=== PATIENT | female | born 1970 | race Caucasian/White ===

== ENCOUNTER 2022-04-06 12:29 | Emergency (ER) | payer SELFPAY ==
[2022-04-06] VITALS (16 sets, daily range): BP systolic 119–150; BP diastolic 63–84; PULSE 71–89; RESP 14–17; TEMP 36.5; O2SAT 93–100
[2022-04-06 13:31] LABS: Bilirubin Urine Negative (Negative); Blood Urine Trace-intact (Negative); Glucose Urine UA Negative (Normal); Ketones Urine Negative (Negative); Leukocyte Esterase Urine Negative (Negative); Nitrate Urine Negative; Protein Urine Negative (Negative); Urine Appearance Clear (CLEAR); Urine Color Yellow (Yellow); Urobilinogen Urine 0.2 mg/dL (Negative); pH Urine 6.5 (5-7)
[2022-04-06 13:41] LABS: Add Urine Microscopic? YES
[2022-04-06 13:46] LABS: Bacteria Urine TRACE /hpf; RBC Urine RARE /hpf (0-2); WBC Urine 0-4 /hpf (0-5)
[2022-04-06 13:47] LABS: Add Urine Culture? No
--- NOTE | 2022-04-06 13:55 | CT_ITS ---
WS: [id number] CT ABDOMEN PELVIS TECHNIQUE: Contrast-enhanced CT of the abdomen and pelvis with coronal and sagittal reformatted image s. CLINICAL INFORMATION: abd pain COMPARISON: None. DLP: 1210.[address] scans at [facility] use at least one of these dose optimization techniques: automated e xposure control; mA and/or kV adjustment per patient size (includes targeted exams where dose is matc hed to clinical indication); or iterative reconstruction. FINDINGS:Normal appendix in the RIGHT lower quadrant. Umbilical hernia containing a dilated incarcera padmaja loop of small bowel measuring 4.6 cm. Associated enhancement and fluid. Recommend correlation for umbilical pain and strangulation. No free air. Markedly enlarged bulky fibroid uterus measuring 15.1 x 17.7 x 13.3 CM. Displacement of small bowel l oops in the pelvis. Recommend recommend REFRIGERATOR CRATER consultation. Lung bases are well aerated. Diffuse fatty infiltration liver. Cholelithiasis. Enhancing lesion in he patic lobe likely hemangioma or FNH measuring 15 mm.RIGHT undersurface hepatic cyst measuring 3.3 CM. Normal portal vein and splenic vein. Normal GE junction. Fatty atrophy of the pancreas. Adrenal glan ds are normal. Normal renal parenchymal enhancement. No hydronephrosis. No obstructing renal or urete ral calculi. Normal caliber abdominal aorta. Aortic calcification. Normal sigmoid colon. No free flui d in the pelvis. A few sigmoid diverticuli. No evidence of acute diverticulitis. Normal colon. CT/CT abdomen pelvis w con* [id number] IMPRESSION: 1. Herniated loop of incarcerated small bowel at the umbilical hernia with per ipheral enhancement and fluid distention. Surrounding fluid. Recommend correlat ion for umbilical pain. No free air. 2. Normal appendix in the RIGHT lower quadrant. 3. Markedly enlarged bulky fibroid uterus as described above. Recommend REFRIGERATOR CRATER co nsultation for resection. 4. Cholelithiasis. 5. Diffuse fatty infiltration liver. 6. No other acute findings. Notified Ru Cooper MD at 04/06/2022 2:42 PM.
[2022-04-06 13:57] LABS: Basophils # 0.1 10^3/uL (0.0-0.1); Basophils % 0.8 %; Eosinophils # 0.1 10^3/uL (0.0-0.8); Eosinophils % 0.7 %; Hematocrit 32.8 % (37.0-47.0); Hemoglobin 10.1 g/dL (11.5-15.3); Lymphocytes # 1.4 10^3/uL (0.8-4.8); Lymphocytes % 11.7 %; Mean Corpuscular HGB Conc 30.8 g/dL (30.0-36.0); Mean Corpuscular Volume 71.5 fl (81-99); Mean Platelet Volume 9.5 fL (7.4-10.4); Monocytes # 0.5 10^3/uL (0.2-0.9); Monocytes % 4.2 %; Neutrophils # 9.65 10^3/uL (1.8-7.7); Neutrophils % 81.8 %; Nucleated Red Blood Cells % 0 %; Platelet Count 371 10^3/cmm (130-400); Red Blood Count 4.59 10^6/uL (4.1-5.3); Red Cell Distribution Width 17.7 % (12.1-15.1); White Blood Count 11.8 10^3/uL (4.0-10.0)
--- NOTE | 2022-04-06 13:57 | ED_ITS ---
HPI - General Adult General: Chief complaint: Urogenital-Female Stated complaint: urinary pain Time Seen by Provider: 04/06/22 13:44 History of Present Illness: Patient is a 51-year-old female with history of umbilical hernia, lateral wall hernia presenting to the emergency with compl aints of right flank and right back pain. Patient says the pain started around 8 AM suddenly. Patient has had intermittent spasms of pain throughout the day lasting for an hr at a time. Pain is not exacerbated by p.o. intake. Patient says the pain is neither relieved or worsened with positional changes. Patient reports that her current pain is 5 out of 10. Patient denies any nausea/vomiting fever/chills. Patient has a history of prior . Denies any history of renal colic, hematuria, or polyuria. Patient denies any new vaginal discharge or vaginal bleeding. Patient denies any diarrhea/melena/hematochezia Onset:8am Duration:ongoing intermittent Location:home Severity:moderate Associated symptoms: Deny chest pain, dyspnea, nausea, rash, palpitations or vomiting Review of Systems Const: Denies: fever(s) or chills Eyes: Denies: change in vision ENMT: Denies: mouth pain Card: Denies: chest pain or palpitations Resp: Denies: dyspnea or non-productive cough GI: Denies: abdominal pain, nausea, vomiting or diarrhea : Reports: flank pain (+R sided flank pain); Denies: dysuria Musc: Reports: back pain (+R sided back pain); Denies: extremity pain Skin/Breast: Denies: rash or new lesions Neuro: Denies: weakness in extremities Psych: Reports: other (Normal mood) See/Lymph: Denies: easy bruising PFS ED PFSH: Medical History Umbilical hernia Social History Smoking and tobacco status: never smoked Alcohol intake: never Substance/Drug Use: never Physical Exam Const: COMMON NORMALS: alert HENMT: COMMON NORMALS: atraumatic HEAD & SCALP: atraumatic MOUTH: moist mucous membranes not abnormal Eye: COMMON NORMALS: EOMs intact bilaterally and conjunctivae normal CONJUNCTIVA: Yes conjunctivae normal Neck/C-Spine: COMMON NORMALS: full ROM and supple Resp: COMMON NORMALS: normal respiratory effort and clear to auscultation bilaterally AUSCULTATION: clear to auscultation bilaterally Cardio: COMMON NORMALS: regular rate RATE: regular rate GI: COMMON NORMALS: Soft to palpation and non-tender PALPATION: Yes Soft to palpation OTHER: +mild R sided TTP. NO guarding rebound, guarding, rigidity. No CVA tenderness to percussion. Neg Trujillo/Neg McBurney's point tenderness, no suprabupic tenderness to palpation. +umbilical hernia soft and reducible Extremity: COMMON NORMALS: full ROM Neuro: SENSORIUM/ORIENTATION: Yes alert MOTOR EXAM: No Abnormal motor strength present and Other motor observations present (no focal motor deficits) Psych: COMMON NORMALS: speech normal SPEECH: Yes normal speech MOOD & AFFECT: Yes euthymic mood Course Vital Signs: Vital signs: Vital Signs Temperature 97.7 F 04/06/22 12:35 Pulse Rate 71 04/06/22 19:39 Respiratory Rate 16 04/06/22 19:39 Blood Pressure 119/63 04/06/22 19:39 Pulse Oximetry 97 04/06/22 19:39 Oxygen Delivery Me thod 04/06/22 19:39 MDM - General Adult Medical Decision Making Patient is a 51-year-old female with history of umbilical hernia, lateral wall hernia presenting to the emergency with complaints of right flank and right back pain. On exam, patient has mild right-sided tenderness palpation. Umbilical hernia but soft and reducible. Patient is not in any acute pain or distress. There is no guarding or rebound tenderness. Lab work showed white count 11.8. Hemoglobin 10.1 with no prior for comparison. Lactic of 3.0. CT on pelvis showed incarcerated umbilical hernia with large uterine bulky mass. Since patient has been having pain since 8 AM, case was discussed immediately with Dr. Narvaez and Dr. Gonzalez. Dr. Gonzalez recommend transferring the patient since patient has an large uterine mass and heterogeneous findings liver. Dr. Narvaez evaluated patient at bedside and offered patient option for surgery versus transfer for definitive management of uterine mass and SBO. Dr. Narvaez explained the risk, benefit and alternative today and patient likes desire to be transferred to outside facility. Patient is currently in no acute distress. The umbilical hernia appears to be reducible. Repeat lactic acid is 2.7 from 3.0. Patient received IVF and zosyn. Case was discussed with Dr. Carcamo who agreed with the transfer to [facility] in [place] Disposition: Transfer to outside hospital Lab Data : 04/06/22 13:40 04/06/22 13:40 Radiology Impressions Abdomen/Pelvis CT 04/06/22 13:55 IMPRESSION: 1. Herniated loop of incarcerated small bowel at the umbilical hernia with peripheral enhancement and fluid distention. Surrounding fluid. Recommend correlation for umbilical pain. No free air. 2. Normal appendix in the RIGHT lower quadrant. 3. Markedly enlarged bulky fibroid uterus as described above. Recommend HYDRAULIC ELEVATOR CONSTRUCTOR co nsultation for resection. 4. Cholelithiasis. 5. Diffuse fatty infiltration liver. 6. No other acute findings. Notified Ru Cooper MD at 04/06/2022 2:42 PM. Laboratory Results WBC 11.8 10^3/uL (4.0-10.0) H 04/06/22 13:40 RBC 4.59 10^6/uL (4.1-5.3) 04/06/22 13:40 Hgb 10.1 g/dL (11.5-15.3) L 04/06/22 13:40 Hct 32.8 % (37.0-47.0) L 04/06/22 13:40 MCV 71.5 fl (81-99) L 04/06/22 13:40 MCH 22.0 pg (28.0-34.0) L 04/06/22 13:40 MCHC 30.8 g/dL (30.0-36.0) 04/06/22 13:40 RDW 17.7 % (12.1-15.1) H 04/06/22 13:40 Plt Count 371 10^3/cmm (130-400) 04/06/22 13:40 MPV 9.5 fL (7.4-10.4) 04/06/22 13:40 Neut % (Auto) 81.8 % 04/06/22 13:40 Lymph % (Auto) 11.7 % 04/06/22 13:40 [place] % (Auto) 4.2 % 04/06/22 13:40 Eos % (Auto) 0.7 % 04/06/22 13:40 Baso % (Auto) 0.8 % 04/06/22 13:40 Neut # (Auto) 9.65 10^3/uL (1.8-7.7) H 04/06/22 13:40 Lymph # (Auto) 1.4 10^3/uL (0.8-4.8) 04/06/22 13:40 [place]orden # (Auto) 0.5 10^3/uL (0.2-0.9) 04/06/22 13:40 Eos # (Auto) 0.1 10^3/uL (0.0-0.8) 04/06/22 13:40 Baso # (Auto) 0.1 10^3/uL (0.0-0.1) 04/06/22 13:40 Nucleated RBC % (auto) 0 % 04/06/22 13:40 Nucleated RBCs # 0.0 /100WBC 04/06/22 13:40 Sodium 133 mmol/L (136-145) L 04/06/22 13:40 Potassium 4.4 mmol/L (3.5-5.1) 04/06/22 13:40 Chloride 98 mmol/L (98-107) 04/06/22 13:40 Carbon Dioxide 20 mmol/L (22-29) L 04/06/22 13:40 Anion Gap 19.4 (5-19) H 04/06/22 13:40 BUN 9 mg/dL (6-20) 04/06/22 13:40 Creatinine 0.5 mg/dL (0.5-0.9) 04/06/22 13:40 GFR Calculation 129.6 mL/min (90-130) 04/06/22 13:40 Glucose 177 mg/dL (65-115) H 04/06/22 13:40 Calculated Osmolality 279 mOsm/kg (285-295) L 04/06/22 13:40 Lactic Acid 3.0 mmol/L (0.5-2.2) H 04/06/22 13:40 Lactic Acid (Sepsis) 2.7 mmol/L (0.5-2.2) H 04/06/22 17:42 Lactate 2.6 mmol/L (0.5-2.2) H 04/06/22 17:58 Calcium 9.7 mg/dL (8.5-10.5) 04/06/22 13:40 Total Bilirubin 0.3 mg/dL (0.15-1.2) 04/06/22 13:40 AST 31 U/L (0-32) 04/06/22 13:40 ALT 33 U/L (0-33) 04/06/22 13:40 Alkaline Phosphatase 75 U/L (35-105) 04/06/22 13:40 Total Protein 7.4 g/dL (6.6-8.7) 04/06/22 13:40 Albumin 4.4 g/dL (3.5-5.2) 04/06/22 13:40 Globulin 3.0 g/dL (1.3-4.6) 04/06/22 13:40 Lipase 24 U/L (13-60) 04/06/22 13:40 Urine Color Yellow (Yellow) 04/06/22 13:25 Urine Appearance Clear (CLEAR) 04/06/22 13:25 Urine pH 6.5 (5-7) 04/06/22 13:25 Ur Specific [place] 1.020 (1.005-1.030) 04/06/22 13:25 Urine Protein Negative (Negative) 04/06/22 13:25 Urine Glucose (UA) Negative (Normal) 04/06/22 13:25 Urine Ketones Negative (Negative) 04/06/22 13:25 Urine Blood Trace-intact (Negative) A 04/06/22 13:25 Urine Nitrate Negative 04/06/22 13:25 Urine Bilirubin Negative (Negative) 04/06/22 13:25 Urine Urobilinogen 0.2 mg/dL (Negative) 04/06/22 13:25 Ur Leukocyte Esterase Negative (Negative) 04/06/22 13:25 Urine RBC Rare /hpf (0-2) 04/06/22 13:25 Urine WBC 0-4 /hpf (0-5) H 04/06/22 13:25 Ur Squamous Epith Cells 5-10 /hpf (0-5) H 04/06/22 13:25 Amorphous Sediment Not Reportable 04/06/22 13:25 Urine Bacteria Trace /hpf (NONE) 04/06/22 13:25 Imaging Data Other Imaging: Radiologist's impression: [address] [address] [address] Scan Report Signed Patient: Mar Flores Unit #: [id number] : 1970 Age/Sex: 51 / F ADM Date: 04/06/22 Loc: ER Room/Bed: Attending Dr: Ordering Provider/Ordering MD: Ru Cooper MD Date of Service: 04/06/22 Procedure(s): CT abdomen pelvis w con* [id number] Accession Number(s): [id number] Report Number: [id number] WS: [id number] CT ABDOMEN PELVIS TECHNIQUE: Contrast-enhanced CT of the abdomen and pelvis with coronal and sagittal reformatted images. CLINICAL INFORMATION: abd pain COMPARISON: None. DLP: 1210.[address] scans at [facility] use at least one of these dose optimization techniques: automated exposure control; mA and/or kV adjustment per patient size (includes targeted exams where dose is matched to clinical indication); or iterative reconstruction. FINDINGS:Normal appendix in the RIGHT lower quadrant. Umbilical hernia containing a dilated incarcerated loop of small bowel measuring 4.6 cm. Associated enhancement and fluid. Recommend correlation for umbilical pain and strangulation. No free air. Markedly enlarged bulky fibroid uterus measuring 15.1 x 17.7 x 13.3 CM. Displacement of small bowel loops in the pelvis. Recommend recommend HYDRAULIC ELEVATOR CONSTRUCTOR consultation. Lung bases are well aerated. Diffuse fatty infiltration liver. Cholelithiasis. Enhancing lesion in hepatic lobe likely hemangioma or FNH measuring 15 mm.RIGHT undersurface hepatic cyst measuring 3.3 CM. Normal portal vein and splenic vein. Normal GE junction. Fatty atrophy of the pancreas. Adrenal glands are normal. Normal renal parenchymal enhancement. No hydronephrosis. No obstructing renal or ureteral calculi. Normal caliber abdominal aorta. Aortic calcification. Normal sigmoid colon. No free fluid in the pelvis. A few sigmoid diverticuli. No evidence of acute diverticulitis. Normal colon. CT/CT abdomen pelvis w con* [id number] IMPRESSION: ? 1.? Herniated loop of incarcerated small bowel at the umbilical hernia with peripheral enhancement and fluid distention. Surrounding fluid. Recommend correlation for umbilical pain. No free air. 2.? Normal appendix in the RIGHT lower quadrant. 3.? Markedly enlarged bulky fibroid uterus as described above. Recommend HYDRAULIC ELEVATOR CONSTRUCTOR consultation for resection. 4.? Cholelithiasis. 5.? Diffuse fatty infiltration liver. 6.? No other acute findings. ? Notified Ru Cooper MD at 04/06/2022 2:42 PM. ? ? Dictated By: Randy Ferro MD Signed By: Randy Ferro MD Signed Date/Time: 04/06/22 1442 DD/ 1428 Discharge Plan Discharge Patient Disposition: Admitted As Inpatient Clinical Impression: Incarcerated umbilical hernia Coding Level of Care Code ED Program Evaluator for Chg Fwd Exam Comprehensive
[2022-04-06] MEDS: ondansetron 2 mg/ML SDV 2 mL 4 MG IVP (14:02)
[2022-04-06] MEDS: morphine 4 mg/mL SDV 1 mL IVP (14:02)
[2022-04-06] MEDS: lactated ringers 1,000 ML 999 ML IV (14:03)
[2022-04-06] MEDS: iohexol 350 mg/mL 100 mL Btl IV (14:09)
[2022-04-06 14:13] LABS: Alanine Aminotransferase 33 U/L (0-33); Albumin Level 4.4 g/dL (3.5-5.2); Alkaline Phosphatase 75 U/L (35-105); Anion Gap 19.4 (5-19); Aspartate Amino Transferase 31 U/L (0-32); Blood Urea Nitrogen 9 mg/dL (6-20); Calcium 9.7 mg/dL (8.5-10.5); Carbon Dioxide 20 mmol/L (22-29); Chloride 98 mmol/L (98-107); Glomerular Filtration Rate 129.6 mL/min (90-130); Glucose 177 mg/dL (65-115); Lipase 24 U/L (13-60); Osmolality Calculated 279 mOsm/kg (285-295); Potassium 4.4 mmol/L (3.5-5.1); Sodium 133 mmol/L (136-145); Total Bilirubin 0.3 mg/dL (0.15-1.2); Total Protein 7.4 g/dL (6.6-8.7)
[2022-04-06] MEDS: piperacillin-tazobactam 3.375 GM in sodium chloride 0.9% (plus) 50 ML IV (15:47)
--- NOTE | 2022-04-06 15:50 | PC.PHAR ---
PT STATES SHE TAKES NO RX MEDICATIONS-PT STATES JUST TAKES OTC MEDS PRN-
--- NOTE | 2022-04-06 15:53 | PM.CONSULT ---
Providers/Reason For Consult Consulting Physician/Specialty*: Trenton Narvaez MD Reason for Consult*: Concern for incarcerated hernia Requesting Physician: Dr. Cooper Primary Care Provider: Jonathan Taveras MD History of Present Illness History of Present Illness Ms. dash Flores is a pleasant 51 year old female presents to the emergency department complaining of a bulge on the right lateral aspect of her abdomen particularly the right flank and right back pain that started 8 AM today. Patient describes that she has been having intermittent spasms throughout the day. And she reports to me that she has been having chronic umbilical hernia for over a year now. Intermittently she would feel some discomfort but her today's complaint not related to the hernia. The discomfort on her side seems to go away when she lays down and gets worse when she moves around. Patient reports to me that she has been having excessive vaginal bleeding at times. Denies nausea or vomiting. Further work-up in the ER was done that showed leukocytosis of 11.8, hemoglobin 10.1, platelet 371. Sodium 133, potassium 4.4, lactic acid 3.0 CT of the abdomen pelvis was done and did show 1.? Herniated loop of incarcerated small bowel at the umbilical hernia with peripheral enhancement and fluid distention. Surrounding fluid. Recommend correlation for umbilical pain. No free air. 2.? Normal appendix in the RIGHT lower quadrant. 3.? Markedly enlarged bulky fibroid uterus as described above. Recommend STRATEGY CONSULTANT consultation for resection. 4.? Cholelithiasis. 5.? Diffuse fatty infiltration liver. 6.? No other acute findings. ? Based on those findings general surgery was consulted for further evaluation and management. Patient was seen and evaluated in the ED room #7 Review of Systems General: Reports: 10 or more systems reviewed and unremarkable except in HPI and below Medications/Allergies Home Medications Medication Instructions Recorded Confirmed Last Taken Type ascorbic acid (vitamin C) 500 mg 500 mg PO DAILY PRN UNKNOWN 04/06/22 04/06/22 1 Week Ago History tablet (Vitamin C) ~03/30/22 Allergies Allergy/AdvReac Type Severity Reaction Status Date / Time No Known Allergies Allergy Verified 04/06/22 15:58 Current Medications Generic Name Dose Route Start Last Admin Trade Name Freq PRN Reason Stop Dose Admin Piperacillin Sod/Tazobactam 50 mls @ 100 mls/hr 04/06/22 15:32 04/06/22 15:47 Sod 3.375 gm/ Sodium Chloride IV 04/06/22 16:01 100 mls/hr ONCE ONE Administration Protocol PFSH Acute PFSH: Medical History Umbilical hernia Social History Smoking and tobacco status: never smoked Alcohol intake: never Substance/Drug Use: never Vitals/I&O/Wt Last Vital Signs Temp 97.7 F 04/06/22 12:35 Pulse 89 04/06/22 12:35 Resp 14 04/06/22 14:02 BP 138/84 04/06/22 12:35 Pulse Ox 100 04/06/22 14:02 O2 Del Method 04/06/22 12:35 04/06/22 04/06/22 04/06/22 06:59 14:59 22:59 Intake Total 16.65 / 16.65 Balance 16.65 / 16.65 Physical Exam Const: COMMON NORMALS: no acute distress and patient oriented x3 GENERAL APPEARANCE: cooperative ORIENTATION/CONSCIOUSNESS: Yes awake, Yes oriented to person, Yes oriented to place and Yes oriented to time HENMT: COMMON NORMALS: normocephalic HEAD & SCALP: normocephalic Eye: COMMON NORMALS: Equal, round and reactive pupils present and no scleral icterus PUPIL: Yes Equal, round and reactive pupils present Lymph: LYMPHATIC: no lymphadenopathy noted Chest: COMMONS NORMALS: normal inspection of the chest Resp: COMMON NORMALS: normal respiratory effort and clear to auscultation bilaterally AUSCULTATION: clear to auscultation bilaterally Cardio: COMMON NORMALS: S1 normal heart sound present and S2 normal heart sound present; negative for No murmurs present (Cardio) HEART SOUNDS: S1 normal heart sound present and S2 normal heart sound present GI: COMMON NORMALS: Soft to palpation; negative for No hepatosplenomegaly present INSPECTION: Yes normal to inspection PALPATION: Yes Soft to palpation, No Firmness to palpation present (GI), No Tenderness to palpation present (GI), No Guarding due to palpation present (GI), No Rigid due to palpation, No No hepatosplenomegaly present and Yes Hernia present umbilical (Reducible umbilical hernia) : EXTERNAL FEMALE EXAM: Yes Hernia present Neuro: COMMON NORMALS: patient oriented x3 SENSORIUM/ORIENTATION: Yes oriented to person, Yes oriented to place and Yes oriented to time Psych: COMMON NORMALS: mental status grossly normal Skin: COMMON NORMALS: no rashes or lesions noted GENERAL SKIN EXAM: no rashes or lesions noted Data : 04/06/22 13:40 04/06/22 13:40 A&P Assessment and plan (1) Incarcerated umbilical hernia: After thorough history physical examination and reviewing the CT scan of the abdomen and pelvis with my personal interpretation. I do believe that the patient does have a chronic umbilical hernia that would require to be surgically repaired with or without mesh. I did offer the patient surgery this evening with my concern of the narrow neck of the hernia that eventually can get worse over time. And also the higher risk of acute on top of chronic incarceration that may have detrimental effect causing bowel ischemia, strangulation and demise. Certainly the patient will require IV fluid resuscitation I do believe that her lactic acid is little bit elevated due to dehydration as she had nothing to eat or drink since morning. No definite risk for sepsis. Currently she denies any abdominal pain. But on the CT scan there was an incidental finding of a large uterine masses Markedly enlarged bulky fibroid uterus measuring 15.1 x 17.7 x 13.3 CM. Displacement of small bowel loops in the pelvis. Recommend recommend STRATEGY CONSULTANT consultation. And subsequently Dr. Cooper ED attending contacted Dr. Gonzalez the telecom analyst on-call and she recommended the patient to be transferred to a [facility] service for further evaluation because of her concern of higher chance to have this uterine pathology harbor neoplastic changes. I did rehab/pre vocational counselor the patient for potential surgical intervention for repairing the hernia yet knowing if she would to be transferred for further evaluation for her uterine pathology. I do believe it would be appropriate that surgical intervention would address both pathologies at the same time. Patient currently stable. Will require IV fluid resuscitation and will start her on 1 dose of Zosyn 3.375 mg I Did discuss all options with the patient and her daughter in the presence of her nursing staff Ean and patient agreed on the plan of care and she agreed on transfer to another facility for higher level of care. Thank you for consulting general surgery to participate taking care Ms Flores. Coding Level of Care Code Acute Automatic Door Mechanic for Saray Bradley Diagnoses Incarcerated umbilical hernia K42.0
[2022-04-06 16:58] LABS: Reflex Lactate Order REFLEX LACTIC ORDERD
[2022-04-06 18:04] LABS: Lactic Acid level (Lactate) 2.7 mmol/L (0.5-2.2)
[2022-04-06 18:29] LABS: Lactate (Lactic Acid level) 2.6 mmol/L (0.5-2.2)
== END 2022-04-06 21:56 | disposition admitted as inpatient to this hospital (09) ==
PROVIDERS: Family Medicine; Emergency Provider Emergency Medicine; PCP Family Medicine
DX: K42.0 Umbilical hernia with obstruction, without gangrene (principal); D25.9 Leiomyoma of uterus, unspecified; K80.20 Calculus of gallbladder without cholecystitis without obstruction; K76.0 Fatty (change of) liver, not elsewhere classified
CPT/HCPCS: 36415; 74177; 80053; 81001; 83605; 83690; 85025; 96365; 96375; 99285; J2270; J2405; J2543; Q9967

== ENCOUNTER 2023-12-07 13:05 | Outpatient (CLI) | payer OTHER, SELFPAY ==
--- NOTE | 2023-12-07 13:13 | MM_ITS ---
WS: [id number] BILATERAL 3D TOMOSYNTHESIS DIGITAL SCREENING MAMMOGRAPHY WITH CAD CLINICAL INFORMATION: SCREENING HISTORY: Screening mammogram. No current complaints. COMPARISON: Baseline TECHNIQUE: Bilateral CC and MLO views. FINDINGS: The breasts are composed of heterogeneous fibroglandular density tissue, which can limit the detectio n of small underlying mass lesions. Clustered calcifications lower outer LEFT breast. No comparisons. Recommend spot magnification views. Unremarkable RIGHT breast. MM/[place] [id number] IMPRESSION: BI-RADS: 0-Incomplete: Need additional imaging evaluation FOLLOW UP: Need Additional Imaging Clustered calcifications LEFT breast. Recommended spot magnification views
== END 2023-12-07 13:06 | disposition home or self-care (01) ==
PROVIDERS: PCP Family Medicine; Visit Provider Family Medicine
DX: Z12.31 Encounter for screening mammogram for malignant neoplasm of breast (principal); R92.333 Mammographic heterogeneous density, bilateral breasts; R92.1 Mammographic calcification found on diagnostic imaging of breast
CPT/HCPCS: 77063; 77067

== ENCOUNTER 2024-04-06 11:28 | Outpatient (CLI) | payer OTHER, SELFPAY ==
--- NOTE | 2024-04-06 11:30 | MM_ITS ---
WS: [id number] LEFT 3D TOMOSYNTHESIS DIGITAL MAMMOGRAPHY WITH CAD CLINICAL INFORMATION: ABNORMAL MAMMO HISTORY: Additional views for calcifications COMPARISON: 12/07/2023 TECHNIQUE: 3 views of the left breast were obtained. FINDINGS: The left breast is composed of heterogeneous fibroglandular density tissue, which can limit the detec tion of small underlying mass lesions. Again seen are the clustered calcifications lower outer LEFT b reast. These are somewhat faint and amorphous in appearance on the ML view.. These are probably benig n and recommend 6-month follow-up to confirm stability. MM/MM diag LT tomosynthesis [id number] IMPRESSION: DENSITY: The breasts are heterogeneously dense, which may obscure small masses. BI-RADS: 3 - Probably Benign FOLLOW UP: 6 Month Follow-up Recommend 6-month follow-up LEFT breast diagnostic mammography with spot magnif ication views for the calcifications.
== END 2024-04-06 11:29 | disposition home or self-care (01) ==
LOC: RAD 11:29
PROVIDERS: PCP Family Medicine; Visit Provider Family Medicine
DX: R92.8 Other abnormal and inconclusive findings on diagnostic imaging of breast (principal); R92.333 Mammographic heterogeneous density, bilateral breasts; R92.1 Mammographic calcification found on diagnostic imaging of breast
CPT/HCPCS: 77061; G0279